=== PATIENT | female | born 1990 | race Caucasian/White ===

== ENCOUNTER → 2018-07-06 | Outpatient (CLI) | payer OTHER, SELFPAY ==
[2018-07-06 14:47] LABS: Progesterone Level 0.45 ng/mL (See Comment)
== END | disposition home or self-care (01) ==
LOC: WOBLAB 13:24
PROVIDERS: Visit Provider Obstetrics & Gynecology
DX: N92.6 Irregular menstruation, unspecified (principal)
CPT/HCPCS: 36415; 84144

== ENCOUNTER → 2019-10-31 11:56 | Outpatient (CLI) | payer OTHER, SELFPAY ==
[2019-10-31 13:11] LABS: AST(SGOT) 14 U/L (15-37); Alanine Aminotransfer ALT/SGPT 15 U/L (13-56); Albumin, Serum 2.6 g/dL (3.2-5.0); Alkaline Phosphatase 203 U/L (45-117); Bilirubin, Direct 0.08 mg/dL (0.00-0.30); Globulin 4.1 g/dL (2.2-4.2); Protein, Total 6.7 g/dL (6.4-8.2)
== END ==
PROVIDERS: Visit Provider Obstetrics & Gynecology
DX: O26.893 Other specified pregnancy related conditions, third trimester (principal); Z3A.00 Weeks of gestation of pregnancy not specified
CPT/HCPCS: 36415; 80076

== ENCOUNTER → 2019-11-09 18:03 | Outpatient (CLI) | payer OTHER, SELFPAY | PROVIDERS: Referring Provider Obstetrics & Gynecology; Visit Provider Obstetrics & Gynecology | DX: Z11.59 Encounter for screening for other viral diseases (principal) | CPT/HCPCS: 87635; 94799; U0003 ==

== ENCOUNTER 2019-11-14 19:54 | Inpatient (IN) | payer OTHER, SELFPAY ==
[2019-11-14] VITALS (9 sets, daily range): BP systolic 129–138; BP diastolic 83–84; PULSE 100–144; TEMP 36.6–36.7; O2SAT 97–98; BMI 35.5
[2019-11-14] MEDS: Lactated Ringers 500 ML 999 ML IV (20:25)
[2019-11-14 20:37] LABS: Absolute Lymphocyte Count 2.22 X10^3/uL (0.83-4.51); Absolute Neutrophil Count 6.6 X10^3/uL (2.0-7.7); Basophil# 0.03 X10^3/uL; Basophil% 0.3 % (0-1); Eosinophil# 0.19 X10^3/uL; Eosinophils% 1.9 % (0-5); Hematocrit 33.6 % (37-47); Hemoglobin 10.7 g/dL (12.0-15.0); Lymphocyte # 2.22 X10^3/ul (4.0); Lymphocyte % 22.6 % (19-41); Mean Corp Hgb Conc 31.8 g/dL (32-36); Mean Corpuscular Hgb 27.1 pg (27.0-32.0); Mean Corpuscular Volume 85.1 fL (81-99); Mean Platelet Vol. 10.5 fl (6.2-12.0); Monocyte# 0.73 X10^3/uL; Monocyte% 7.4 % (0-10); NRBC Flagged by Analyzer 0 % (0-5); Neutrophil # 6.63 X10^3/uL (2.7-7.7); Neutrophil % 67.4 % (47-70); Platelet Count 273 K/mm3 (150-450); RBC Distribution Width CV 16.6 % (11.6-14.6); RBC Distribution Width SD 50.9 fl (35.1-43.9); Red Blood Count 3.95 M/mm3 (4.2-5.4); White Blood Count 9.8 K/mm3 (4.4-11.0)
--- NOTE | 2019-11-14 20:46 | PCM.HP.OB ---
- Problem List (1) 41 weeks gestation of Status: Acute History Date of Admission: 11/14/19 Final JONNATHAN: 11/07/19 Final JONNATHAN Source: US <20 weeks Gestational age: 41 Weeks and 0 Days History of this : This is a 29 year-old, G [1], P [0], at 41 weeks gestational age. Smoking Status: Never smoker Alcohol: None Number of Fetus(es): 1 NST - FHR Rate Baby A Baseline: 160 Variability:: Moderate Accelerations:: 15 x 15 Decelerations:: None NST Reactive:: Yes FHR Category:: Category I Uterine Activity:: quiet History Past Pregnancies: Past Pregnancies: None Labs: Mom's Labs & Results 11/14/19 11/14/19 20:25 20:25 WBC 9.8 RBC 3.95 L Hgb 10.7 L Hct 33.6 L MCV 85.1 MCH 27.1 MCHC 31.8 L RDW Std Deviation 50.9 H RDW Coeff of Cristela 16.6 H Plt Count 273 MPV 10.5 Immature Gran % (Auto) 0.400 Neut % (Auto) 67.4 Lymph % (Auto) 22.6 [place] % (Auto) 7.4 Eos % (Auto) 1.9 Baso % (Auto) 0.3 Absolute Neuts (auto) 6.6 Absolute Lymphs (auto) 2.22 Nucleated RBC % 0 Blood Type Pending Antibody Screen Pending Course Did the patient receive Yes care? Labs Blood Type: A RH: NEGATIVE RPR/VDRL/Syphilis Nonreactive Rubella status Immune HbSAg Negative Date Done: 03/30/20 Chlamydia Negative Gonorrhea Negative HIV/AIDS Non-Reactive Group B Strep: Negative Social History Hx Smoking No Smoking Status Never smoker Expected Delivery Method: Spontaneous Vaginal Number of Visits: 12 Review of Systems Constitutional: Denies: Chills, Fever, Weight Change HEENT: Denies: Head Aches, Sinus Congestion, Sinus Drainage Cardiovascular: Denies: Chest Pain, Palpitations Respiratory: Denies: Cough, Shortness of breath at rest, Sputum production Gastrointestinal: Denies: Abdominal Pain, Nausea, Vomiting Genitourinary: Denies: Dysuria Musculoskeletal: Denies: Joint Pain, Joint Tenderness Skin: Denies: Rash, Wounds Neurological: Denies: Numbness, Tingling, Focal weakness Psychiatric: Denies: Anxiety, Depression, Homicidal Ideations, Suicidal Ideations Hematologic/ Lymphatic: Denies: Easy Bruising, Easy Bleeding Physical Exam Vitals: Vital Signs Pulse BP Pulse Ox 134 H 138/84 H 97 11/14/19 20:16 11/14/19 20:15 11/14/19 20:16 General: Alert, Oriented x3, No apparent distress HEENT: Atraumatic, Normocephalic. Negative for: Thyromegaly, Lymphadenopathy Cardiovascular: Regular rate, Regular Rhythm Lungs: Clear to auscultation Abdomen: Bowel Sounds Present, Gravid Neurological: Deep Tendon Reflexes 2+/4 and Symmetrical, Neuro grossly intact BOTTOM STOP ATTACHER: Normal external genitalia. Negative for: Vulvar lesions Estimated gestational size: Appropriate for gestational size Presentation: Cephalic Cervix Dilation (cm): 1 Station: -2 Effacement (%): 50 Assessment/Plan All Active Problems 40 weeks gestation of (Acute) 41 weeks gestation of (Acute) A/P: This is a 29 year-old, G [1], P [0], at 41 weeks gestational age. IOL with Cytotec for postdates NST Category I SVE /-[address] for a
[2019-11-14] MEDS: Lactated Ringers 1,000 ML 200 ML IV (21:18)
[2019-11-14] MEDS: miSOPROStol 25 MCG TABLET PO (22:01)
[2019-11-15] VITALS (49 sets, daily range): BP systolic 104–146; BP diastolic 55–89; PULSE 96–123; TEMP 36.5–37.7; O2SAT 88–100
[2019-11-15] MEDS: Acetaminophen 325 MG Tablet PO (02:02)
[2019-11-15] MEDS: miSOPROStol 50 MCG TABLET PO (02:03)
[2019-11-15] MEDS: 0.9% Saline Lock 10 ML Syringe IV (08:34)
[2019-11-15] MEDS: Oxytocin 30 units/NS 500 ml 30 UNITS/500 ML IV.SOLN IV (08:38)
--- NOTE | 2019-11-15 08:50 | PCM.PN.OB ---
Patient Problems: Active and Suspected Problems 40 weeks gestation of (Acute) 41 weeks gestation of (Acute) Subjective: Doing well. Denies UC pain yet. Ate breakfast. Wants epidural for pain management and to try AROM after comfortable. Objective: FHR baseline 130, +accels, -decels, moderate variability. VSS. - Physical Exam Vitals/I&O's: Vital Signs Temp Pulse BP Pulse Ox 97.7 F L 123 H 127/81 H 98 11/15/19 07:13 11/15/19 08:18 11/15/19 08:18 11/15/19 05:02 Weight: 99.79 kg Body Mass Index (BMI) 35.5 Intake and Output for Last 24 Hours 11/13/19 11/14/19 11/15/19 23:59 23:59 23:59 Intake Total 790 / 790 145.83 / 145.83 Balance 790 / 790 145.83 / 145.83 General: Alert, Oriented x3, Cooperative HEENT: Atraumatic, PERRLA, EOMI, Normocephalic Neck: Supple, No JVD, Negative Carotid Bruits Lungs: Clear to auscultation, Normal air movement Cardiovascular: Regular rate, No murmurs Abdomen: Bowel Sounds Present, Soft, Non Tender Extremities: No edema, Capillary Refill Less than 3 Seconds Skin: No rashes, No breakdown Musculoskeletal: No Tenderness to Palpation of Joints or Extremities Neurological: Cranial nerves II-XII grossly intact Psych/Mental Status: Normal Affect, Appropriate Laboratory Results 11/14/19 20:25: WBC 9.8, RBC 3.95 L, Hgb 10.7 L, Hct 33.6 L, MCV 85.1, MCH 27.1, MCHC 31.8 L, RDW Std Deviation 50.9 H, RDW Coeff of Cristela 16.6 H, Plt Count 273, MPV 10.5, Immature Gran % (Auto) 0.400, Neut % (Auto) 67.4, Lymph % (Auto) 22.6, [place] % (Auto) 7.4, Eos % (Auto) 1.9, Baso % (Auto) 0.3, Absolute Neuts (auto) 6.6, Absolute Lymphs (auto) 2.22, Nucleated RBC % 0 11/14/19 20:25: Blood Type A NEGATIVE, Antibody Screen NEGATIVE Current Medications Acetaminophen (Tylenol) 325 - 650 mg PO Q4H PRN PRN PRN Reason: Pain Score 1-3/10 Last Admin: 11/15/19 02:02 Dose: 650 mg Documented by: Al Hydroxide/Mg Hydroxide (Mylanta Ii) 15 - 30 ml PO Q4H PRN PRN PRN Reason: INDIGESTION Citric Acid/Sodium Citrate (Bicitra) 30 ml PO X1 PRN PRN Reason: Section Fentanyl Citrate (Sublimaze (100mcg Ampule)) 25 - 50 mcg IV Q2H PRN PRN PRN Reason: Pain Score 4-10/10 Lactated Ringer's () 500 mls @ 999 mls/hr IV .Q31M PRN PRN Reason: Epidural Lactated Ringer's () 500 mls @ 999 mls/hr IV .Q31M PRN PRN Reason: Corrective Measures Last Infusion: 11/14/19 21:18 Dose: Infused Documented by: Lactated Ringer's () 1,000 mls @ 50 mls/hr IV .Q20H [facility] Last Infusion: 11/15/19 08:34 Dose: 50 mls/hr Documented by: Oxytocin/Sodium Chloride () 30 units in 500 mls @ 2 mls/hr IV .Q250H [facility] Last Admin: 11/15/19 08:38 Dose: 2 mls/hr Documented by: Ondansetron HCl (Zofran) 4 mg IV Q4H PRN PRN PRN Reason: NAUSEA Prochlorperazine Edisylate (Compazine Iv) 10 mg IV Q6H PRN PRN PRN Reason: NAUSEA Sodium Chloride () 10 - 40 ml IV X1 PRN PRN Reason: SALINE FLUSH Last Admin: 11/15/19 08:34 Dose: 10 ml Documented by: Medical Necessity - Tobacco Use Smoking Status: Never smoker Assessment/Plan All Active Problems 40 weeks gestation of (Acute) 41 weeks gestation of (Acute) A/P: IOL for postdates SVE 50/-2 NST Category I Will start Pitocin Plans epidural for pain management Will plan AROM after comfortable POC reviewed with attending Dr. Terry
[2019-11-15] MEDS: Lactated Ringers 500 ML 999 ML IV ×2 (18:04→23:56)
[2019-11-15] MEDS: Lactated Ringers 1,000 ML 50 ML IV (18:26)
[2019-11-15] MEDS: fentaNYL-bupivacaine (epidural) 100 ML BAG EPIDURAL ×2 (18:49→23:25)
[2019-11-15] MEDS: Lactated Ringers 1,000 ML 200 ML IV (23:22)
[2019-11-16] VITALS (37 sets, daily range): BP systolic 105–131; BP diastolic 53–76; PULSE 104–131; RESP 16–18; TEMP 36.7–37.9; O2SAT 96–100
--- NOTE | 2019-11-16 | PLAC_PTH ---
PATIENT: RAYMUNDO ROWE LOC: [facility] U#:[id number] AGE/SX: 29/F ROOM: WP005 RE11/14/[address]: Dr. Neto Terry MD : 1990 BED: 1 DIS: 11/17/2019 SPEC #: [id number] RECD: 11/16/19 14:20 STATUS: AMOR REAlexandra #: [id number] BRENTON: 11/16/19 00:[address]: Neto Terry DEPT: SURGICAL PATHOLOGY RECD BY: Zev Hoskins ENTERED: 11/17/19 07:38 SP TYPE: PLACENTA OTHR DR: No Primary Care Phys Tissues: Placenta, NOS Procedures: Surgery Specimen Level V HEADER OPERATION: Vaginal delivery PRE-OP DIAGNOSIS: Maternal fever, possible chorioamnionitis TISSUE SUBMITTED: Placenta MICROSCOPIC DIAGNOSIS Diaz placenta (512 gm): Umbilical cord - trivascular with acute funisitis. Placental membranes - acute chorioamnionitis and acute deciduitis. Placental disc - Kayley-Sergio change, organizing intraparenchymal hemorrhage, increased intraparenchymal microcalcifications and mild chronic deciduitis. AM:brennen 11/20/19 MICROSCOPIC DESCRIPTION Slides are reviewed. GROSS DESCRIPTION SPECIMEN: PLACENTA / CLINICAL INFORMATION: A. Weight: 3.755 kg B. Gestational Age: 41 weeks C. Sex: Female PLACENTAL WEIGHT (POST FIXATION): 512 gm PLACENTAL DIMENSIONS: 17.5 x 15 x 3 cm PLACENTAL SHAPE: Usual ovoid PLACENTAL WEIGHT FOR GESTATIONAL AGE: Within 10-99th percentile MEMBRANES - Present A. Insertion: Marginal B. Site of rupture from edge: 4.5 cm from edge of placental disc C. Color of membrane: Yanes-baum D. Abnormalities: None UMBILICAL CORD - Present A. Color: Yanes-baum B. Insertion: Eccentric C. Length: 33 cm D. Diameter: 1.5 cm E. Number of vessels: Three F. Abnormalities: None PLACENTAL DISC - Present A. Color of surface: Yanes-baum B. surface abnormalities: None C. Maternal cotyledons: Intact with minimal tears D. Attached retro placental clot: No clot E. Cut surface: Dark red and spongy F. Lesions: Yanes-white lesion measuring 1 x 1 x 0.8 cm. G. Separate clot: Absent SECTIONS SUBMITTED: 1. Umbilical cord ( end notched) 2. Umbilical cord, placental end 3. Membrane roll 4. Placental disc, and maternal surfaces, lesion 5. Placental disc, and maternal surfaces 6. Placental disc, and maternal surfaces AM:brennen 11/17/19 TC:2 CPT: 55205
--- NOTE | 2019-11-16 00:30 | PCM.PN.BLA ---
Progress Note LABOR PROGRESS NOTE Comfortable without epidural and no complaints. AVSS GEN - NAD, AAO x 3 FHR 150, moderate variabiltiy, + early decelerations SVE deferred, recent exam per RN /-2 TOCO 4/10 min A/P:29yo G1 @ 41 wga, IOL, in active labor, Cat I FHR -Continue pitocin as tolerated by mother and fetus -Maternal and statuses reassuring STROKE Vital Signs/Narrative: Vital Signs Temp Pulse BP Pulse Ox 11/16/19 05:56 98.8 F 125 H 122/72 H 98 11/16/19 05:23 98.1 F 11/16/19 05:01 98.2 F 126 H 115/71 98 11/16/19 03:47 98.2 F 116 H 115/68 99 11/16/19 02:51 98.1 F 99 11/16/19 02:50 116 H 125/69 H 100
[2019-11-16] MEDS: Amnioinfusion- 0.9% NS 1,000 ML IV.SOLN. 1000 ML INTRA-UTER (01:47)
[2019-11-16] MEDS: fentaNYL-bupivacaine (epidural) 100 ML BAG EPIDURAL ×2 (04:26→09:26)
[2019-11-16] MEDS: Lactated Ringers 1,000 ML 200 ML IV ×2 (04:59→12:00)
[2019-11-16] MEDS: Acetaminophen 325 MG Tablet PO ×2 (06:06→11:34)
[2019-11-16] MEDS: Lactated Ringers 500 ML 999 ML IV (06:07)
--- NOTE | 2019-11-16 06:33 | PCM.PN.BLA ---
Progress Note LABOR PROGRESS NOTE Sonja is sleeping comfortably. Tm/c 100.7, P 125, R 18 BP wnl GEN - sleeping comfortably FHR 160, moderate variability, + variable deceleration, + late deceleration TOCO 4/10 min SVE 9.5/90/0 A/P: 29yo G1 @ 41 2/7 wga in active labor, Cat II FHR -IVF bolus for late decelerations, if no resolution, will d/c pitocin -Suspected triple I - IV Gentamicin, Ampicillin ordered -Moderate variability maintained, status overall reassuring STROKE Vital Signs/Narrative: Vital Signs Temp Pulse BP Pulse Ox 11/16/19 05:56 98.8 F 125 H 122/72 H 98 11/16/19 05:23 98.1 F 11/16/19 05:01 98.2 F 126 H 115/71 98 11/16/19 03:47 98.2 F 116 H 115/68 99 11/16/19 02:51 98.1 F 99 11/16/19 02:50 116 H 125/69 H 100
[2019-11-16] MEDS: 0.9% Saline Lock 10 ML Syringe IV ×2 (06:43→15:16)
--- NOTE | 2019-11-16 06:51 | PCM.PN.BLA ---
Progress Note LABOR PROGRESS NOTE Reports feeling more pressure with contractions. VSS GEN - NAD SVE 9.5 with posterior lip, 90/-1, MITA TOCO 3/10 min FHR 160, moderate variability, + accelerations with scalp stim and + late deceleration A/P: 29yo G1 @ 41 2/7wga, Cat II FHR -Pitocin discontinued, will reposition further -Reviewed with patient concern for triple I and plan to start antibiotics -Will continue in labor at this time STROKE Vital Signs/Narrative: Vital Signs Temp Pulse BP Pulse Ox 11/16/19 06:44 98.9 F 11/16/19 05:56 98.8 F 125 H 122/72 H 98 11/16/19 05:23 98.1 F 11/16/19 05:01 98.2 F 126 H 115/71 98 11/16/19 03:47 98.2 F 116 H 115/68 99
--- NOTE | 2019-11-16 09:45 | PCM.PN.OB ---
Patient Problems: Active and Suspected Problems 40 weeks gestation of (Acute) 41 weeks gestation of (Acute) Subjective: Patient now complete and pushing for about 1/2-hour. +1 station. heart tones reassuring. - Physical Exam Vitals/I&O's: Vital Signs Temp Pulse BP Pulse Ox 99.1 F 114 H 121/61 H 100 11/16/19 09:30 11/16/19 09:28 11/16/19 09:28 11/16/19 09:28 Weight: 220 lb Body Mass Index (BMI) 35.5 Intake and Output for Last 24 Hours 11/14/19 11/15/19 11/16/19 23:59 23:59 23:59 Intake Total 790 / 790 3330.62 / 3330.62 2592.44 / 2592.44 Output Total 750 / 750 245 / 245 Balance 790 / 790 2580.62 / 2580.62 2347.44 / 2347.44 Current Medications Acetaminophen (Tylenol) 325 - 650 mg PO Q4H PRN PRN PRN Reason: Pain Score 1-3/10 Last Admin: 11/16/19 06:06 Dose: 650 mg Documented by: Al Hydroxide/Mg Hydroxide (Mylanta Ii) 15 - 30 ml PO Q4H PRN PRN PRN Reason: INDIGESTION Citric Acid/Sodium Citrate (Bicitra) 30 ml PO X1 PRN PRN Reason: Section Ephedrine Sulfate () 10 mg IV Q10M PRN PRN Reason: hypotension Ephedrine Sulfate () 10 mg IM Q30M PRN PRN Reason: hypotension Fentanyl Citrate (Sublimaze (100mcg Ampule)) 25 - 50 mcg IV Q2H PRN PRN PRN Reason: Pain Score 4-10/10 Fentanyl/Bupivacaine/Sodium Chlor () 0 ml EPIDURAL UD [facility]; Protocol Last Admin: 11/16/19 09:26 Dose: 100 ml Documented by: Lactated Ringer's () 500 mls @ 999 mls/hr IV .Q31M PRN PRN Reason: Epidural Last Infusion: 11/15/19 18:55 Dose: Infused Documented by: Lactated Ringer's () 500 mls @ 999 mls/hr IV .Q31M PRN PRN Reason: Corrective Measures Last Infusion: 11/16/19 06:42 Dose: Infused Documented by: Lactated Ringer's () 1,000 mls @ 50 mls/hr IV .Q20H [facility] Last Infusion: 11/16/19 08:28 Dose: 200 mls/hr Documented by: Oxytocin/Sodium Chloride () 30 units in 500 mls @ 2 mls/hr IV .Q250H [facility] Last Infusion: 11/16/19 08:40 Dose: 2 mls/hr Documented by: Naloxone HCl 4 mg/ Dextrose 504 mls @ 0 mls/hr IV .Q0M PRN; Protocol PRN Reason: To maintain Resp. rate >10 Gentamicin Sulfate 300 mg/ (Dextrose) 57.5 mls @ 100 mls/hr IVPB X1 ONE Stop: 11/16/19 07:06 Nalbuphine HCl (Nubain) 5 mg IV Q3H PRN PRN PRN Reason: ITCHING Naloxone HCl (Narcan) 0.02 mg IV Q1M PRN PRN Reason: RR< 10 AND PT UNRESPONSIVE Ondansetron HCl (Zofran) 4 mg IV Q4H PRN PRN PRN Reason: NAUSEA Prochlorperazine Edisylate (Compazine Iv) 10 mg IV Q6H PRN PRN PRN Reason: NAUSEA Sodium Chloride () 10 - 40 ml IV X1 PRN PRN Reason: SALINE FLUSH Last Admin: 11/16/19 06:43 Dose: 30 ml Documented by: Medical Necessity - Tobacco Use Smoking Status: Never smoker Assessment/Plan All Active Problems 40 weeks gestation of (Acute) 41 weeks gestation of (Acute)
[2019-11-16] MEDS: Oxytocin 30 units/NS 500 ml 30 UNITS/500 ML IV.SOLN 334 UNITS IV (12:38)
--- NOTE | 2019-11-16 12:58 | PCM.OPRPT ---
Vaginal Delivery Maternal Presentation: Medically Indicated Induction - Postdatism Method of Induction: Pitocin, Amniotomy, Cytotec Medical Reason for Induction: Post term Amniotic Membrane Rupture Type: Artificial Amniotic Fluid Description: Clear Final JONNATHAN: 11/07/19 Final JONNATHAN Source: [place] <20 weeks Gestational age: 41 Weeks and 2 Days [place] doctor who attended delivery (if requested by OB): Hue Taylor - Maternal fever Date of Procedure: 11/16/19 Pre-Operative Diagnosis: IUP, Suspected Chorioamnionitis Post-Operative Diagnosis: IUP, Suspected Chorioamnionitis Surgery/ Procedure Performed: Vacuum Assisted Vaginal Delivery Type of Anesthesia: Epidural Description of Procedure: Spontaneous vaginal delivery of a viable female infant with Apgars of 9/9 from an occiput anterior presentation with clear amniotic fluid and normal three-vessel placenta. No episiotomy. Second-degree midline laceration repaired with 3-0 repeat suture under epidural. Kiwi vacuum used x1 gentle pull from low outlet to assist with delivery of the head after approximately 3-1/2 hours of pushing and increasing maternal fatigue. Sponges okay. Delivery physician: Neto Terry MD. Presentation: Vertex Placental Delivery Description: Spontaneous Placenta Disposition: Sent to Pathology Cord Vessel Description: 3 Vessels Cord Gases drawn per routine: ABG Cord Entanglement: None Estimated Blood Loss: 250 cc A gender: Female (1 minute): 9 (5 minute): 9 Episiotomy Description: None Laceration: Midline, 2nd degree Medications given after delivery: IV Pitocin Complications: None
--- NOTE | 2019-11-16 13:05 | PCM.DCVAG ---
<Neto Terry - Last Filed: 11/16/19 13:05> Discharge Diet: No Restrictions Discharge Activity: May Shower May resume sexual activity in: 4-6 weeks Additional Activity Instructions:: Nothing in the vagina for 4-6 weeks. You may return to work/school in 6 weeks. Call your doctor if you observe: Inability to urinate, Inability to have a bowel movement, Using more than one pad per hour Additional Instructions: If you experience any of the following, contact your healthcare provider. Bleeding that soaks a pad every hour for 2 hours Fever 100.4 or higher Unrelieved incision or abdominal pain Swelling, redness, discharge or bleeding from your incision or episiotomy site Your incision begins to separate Problems urinating (including inability to urinate or burning while urinating). Visual changes Severe headache Flu-like symptoms Pain or redness in one of both of your breasts Pain, warmth, tenderness or swelling in your legs, especially the calf area Frequent nausea and vomiting Symptoms of depression or anxiety If you experience any of the following, call 911 or go to the nearest Emergency Room. Chest pain Problems breathing Seizure activity Partial or complete paralysis of a body part, slurred speech, weakness or drooping of the face, or a sudden inability to walk or hold your balance Allergies/Adverse Reactions: Allergies No Known Allergies Allergy (Verified 11/14/19 20:48) Medications to take at Discharge Docosahexanoic Acid [ Dha] 1 tab PO DAILY 11/14/19 Please Follow Up With: Neto Terry MD - [phone] When: Call to make an appointment with your doctor in 6 weeks. Primary Care Physician: Care Physician,No Primary [Primary Care Provider] - Test Results: Test results from this visit will be discussed in further detail at your follow-up appointment, if applicable. <Harshil Walls - Last Filed: 11/17/19 07:54> Additional Instructions: If you experience any of the following, contact your healthcare provider. Bleeding that soaks a pad every hour for 2 hours Fever 100.4 or higher Unrelieved incision or abdominal pain Swelling, redness, discharge or bleeding from your incision or episiotomy site Your incision begins to separate Problems urinating (including inability to urinate or burning while urinating). Visual changes Severe headache Flu-like symptoms Pain or redness in one of both of your breasts Pain, warmth, tenderness or swelling in your legs, especially the calf area Frequent nausea and vomiting Symptoms of depression or anxiety If you experience any of the following, call 911 or go to the nearest Emergency Room. Chest pain Problems breathing Seizure activity Partial or complete paralysis of a body part, slurred speech, weakness or drooping of the face, or a sudden inability to walk or hold your balance Test Results: Test results from this visit will be discussed in further detail at your follow-up appointment, if applicable.
--- NOTE | 2019-11-16 13:05 | DCINST_ITS ---
<Neto Terry - Last Filed: 11/16/19 13:05> Discharge Diet: No Restrictions Discharge Activity: May Shower May resume sexual activity in: 4-6 weeks Additional Activity Instructions:: Nothing in the vagina for 4-6 weeks. You may return to work/school in 6 weeks. Call your doctor if you observe: Inability to urinate, Inability to have a bowel movement, Using more than one pad per hour Additional Instructions: If you experience any of the following, contact your healthcare provider. * Bleeding that soaks a pad every hour for 2 hours * Fever 100.4 or higher * Unrelieved incision or abdominal pain * Swelling, redness, discharge or bleeding from your incision or episiotomy site * Your incision begins to separate * Problems urinating (including inability to urinate or burning while urinating). * Visual changes * Severe headache * Flu-like symptoms * Pain or redness in one of both of your breasts * Pain, warmth, tenderness or swelling in your legs, especially the calf area * Frequent nausea and vomiting * Symptoms of depression or anxiety If you experience any of the following, call 911 or go to the nearest Emergency Room. * Chest pain * Problems breathing * Seizure activity * Partial or complete paralysis of a body part, slurred speech, weakness or drooping of the face, or a sudden inability to walk or hold your balance Allergies/Adverse Reactions: Allergies No Known Allergies Allergy (Verified 11/14/19 20:48) Medications to take at Discharge Docosahexanoic Acid [ Dha] 1 tab PO DAILY 11/14/19 Please Follow Up With: Neto Terry MD - [phone] When: Call to make an appointment with your doctor in 6 weeks. Primary Care Physician: Care Physician,No Primary [Primary Care Provider] - Test Results: Test results from this visit will be discussed in further detail at your follow- up appointment, if applicable. <Harshil Walls - Last Filed: 11/17/19 07:54> Additional Instructions: If you experience any of the following, contact your healthcare provider. * Bleeding that soaks a pad every hour for 2 hours * Fever 100.4 or higher * Unrelieved incision or abdominal pain * Swelling, redness, discharge or bleeding from your incision or episiotomy site * Your incision begins to separate * Problems urinating (including inability to urinate or burning while urinating). * Visual changes * Severe headache * Flu-like symptoms * Pain or redness in one of both of your breasts * Pain, warmth, tenderness or swelling in your legs, especially the calf area * Frequent nausea and vomiting * Symptoms of depression or anxiety If you experience any of the following, call 911 or go to the nearest Emergency Room. * Chest pain * Problems breathing * Seizure activity * Partial or complete paralysis of a body part, slurred speech, weakness or drooping of the face, or a sudden inability to walk or hold your balance Test Results: Test results from this visit will be discussed in further detail at your follow- up appointment, if applicable.
[2019-11-16] MEDS: Ibuprofen 600 MG Tablet PO (17:28)
[2019-11-17 00:50] VITALS: BP 112/73; PULSE 112; RESP 16; TEMP 36.7
[2019-11-17] MEDS: Ibuprofen 600 MG Tablet PO ×2 (00:58→07:15)
[2019-11-17 04:40] VITALS: BP 121/66; PULSE 112; RESP 16; TEMP 36.4
--- NOTE | 2019-11-17 07:33 | PCM.PN.OB ---
Patient Problems: Active and Suspected Problems 41 weeks gestation of (Acute) Subjective: Post Objective: No overnight complains, breast feeding. Denies fevers, chills, chest pain, SOB - Physical Exam Vitals/I&O's: Vital Signs Temp Pulse Resp BP Pulse Ox 97.5 F L 112 H 16 121/66 H 97 11/17/19 04:40 11/17/19 04:40 11/17/19 04:40 11/17/19 04:40 11/16/19 17:15 Oxygen Delivery Method Room Air Weight: 220 lb Body Mass Index (BMI) 35.5 Intake and Output for Last 24 Hours 11/15/19 11/16/19 11/17/19 23:59 23:59 23:59 Intake Total 3330.62 / 3330.62 3944.07 / 3944.07 Output Total 750 / 750 1345 / 1345 Balance 2580.62 / 2580.62 2599.07 / 2599.07 General: Alert, Oriented x3, Cooperative HEENT: Atraumatic, PERRLA, EOMI, Normocephalic Neck: Supple Abdomen: Bowel Sounds Present, Soft, Non Tender, Non-Distended, - - Uterus at umbilicus Psych/Mental Status: Normal Affect, Alert and oriented to time, place, person, mood and affect Laboratory Results 11/16/19 14:20: Screen NEGATIVE, Baby's Blood Type A POSITIVE, Baby's [place] NEGATIVE Current Medications Acetaminophen (Tylenol) 1,000 mg PO Q8H PRN PRN PRN Reason: Pain Score 1-3/10 Bisacodyl (Dulcolax) 10 mg RECTAL UD PRN PRN Reason: If no BM Dibucaine (Dibucaine) 1 applic TOPICAL TID PRN PRN; Protocol PRN Reason: Discomfort Hydrocortisone (Hytone) 1 applic TOPICAL TID PRN PRN; Protocol PRN Reason: Discomfort Ibuprofen (Motrin) 600 mg PO Q6H PRN PRN PRN Reason: Pain Score 1-3/10 Last Admin: 11/17/19 07:15 Dose: 600 mg Documented by: Methylergonovine Maleate (Methergine) 0.2 mg IM X1 PRN PRN Reason: Excess bleeding/uterine atony Ondansetron HCl (Zofran) 4 mg IV Q4H PRN PRN PRN Reason: Nausea Oxycodone HCl (Oxyir) 5 - 10 mg PO Q4H PRN PRN PRN Reason: Pain Score 4-10/10 Senna/Docusate Sodium (Senokot-S, Helen-Colace) 1 - 2 tablet PO DAILY PRN PRN PRN Reason: Constipation Simethicone (Mylicon) 80 mg PO PCHS PRN PRN Reason: Indigestion/Stomach pain Sodium Chloride () 5 - 15 ml IV UD PRN PRN Reason: SALINE FLUSH Last Admin: 11/16/19 15:16 Dose: 10 ml Documented by: Zolpidem Tartrate (Ambien (Generic)) 5 mg PO QHS PRN PRN PRN Reason: Insomnia Medical Necessity - Tobacco Use Smoking Status: Never smoker Assessment/Plan All Active Problems 40 weeks gestation of (Acute) 41 weeks gestation of (Acute) PPD#1 s/p VAVD for maternal exhaustion. Afebrile since delivery, s/p Amp/Gent. . Undecided on control. Okay to d/c home today Procedure Criteria Procedure Type: Elective COVID Risk Discussion: The surgeon/proceduralist and patient have discussed in detail the risk of exposure to and/or potential harm posed by the COVID-19 virus with having a surgery/procedure at this time versus the risk of delaying the surgery/procedure. It is not possible to know either the risk of delaying the surgery or procedure or chance of getting an infection with perfect accuracy, but a joint decision was made between the patient and the surgeon/proceduralist to proceed at this time with the scheduled surgery/procedure as indicated on the consent form.
[2019-11-17 09:00] VITALS: BP 118/73; PULSE 102; RESP 16; TEMP 36.8
[2019-11-20 14:26] LABS: Pathology Specimen OB SEE PATHOLOGY REPORT
== END 2019-11-17 15:20 | disposition home or self-care (01) | DRG 805 ==
PROVIDERS: Admitting Provider Obstetrics & Gynecology; Visit Provider Obstetrics & Gynecology
DX: O75.81 Maternal exhaustion complicating labor and delivery (principal); O41.1230 Chorioamnionitis, third trimester, not applicable or unspecified; Z37.0 Single live birth; O76 Abnormality in fetal heart rate and rhythm complicating labor and delivery; O70.1 Second degree perineal laceration during delivery; O48.0 Post-term pregnancy; Z3A.41 41 weeks gestation of pregnancy
CPT/HCPCS: 59025; 59050; 85025; 85461; 86850; 86900; 86901; 88307; 90384; 99218; J7030; J7120; A4216; G0378; J2790